=== PATIENT | male | born 1955 | race Caucasian/White ===

== ENCOUNTER → 2022-10-07 | Emergency (ER) | payer MEDICARE, BC ==
[~2022-10-07] VITALS: Ht 165.1 cm; Wt 59.0 kg
[~2022-10-07] MED LIST: TAMSULOSIN 0.4 MG CAP.SR.24H ONE; TAMSULOSIN 0.4 MG CAP.SR.24H PO ONE
--- NOTE | 2022-10-07 16:22 | NUR ---
PT UNABLE TO URINATE SINCE THIS MORNING. PT IS AMBULATORY AND ESCORTED TO BED 6
--- NOTE | 2022-10-07 16:52 | NUR ---
FC 16FR INSERTED -600ML URINE YELLOW AND CLEAR
--- NOTE | 2022-10-07 17:15 | NUR ---
UA COLLECTED AT THIS TIME AND READY FOR PERIANESTHESIA NURSE
--- NOTE | 2022-10-07 17:30 | NUR ---
FC CHANGED TO LEG BAG
[2022-10-07 17:49] VITALS: BP 128/70
[2022-10-07 17:52] LABS: BILIRUBIN,URINE NEGATIVE (NEGATIVE); COLOR,URINE YELLOW (YELLOW); LEUKOCYTE ESTERASE ,URINE NEGATIVE (NEGATIVE); NITRITE, URINE NEGATIVE (NEGATIVE); PH,URINE 5.5 (5.0-8.0); PROTEIN,URINE NEGATIVE (NEGATIVE); UGLUCOSE NEGATIVE (NEGATIVE); UROBILINOGEN,URINE 0.2 EU/dL (0.2)
== END | disposition home or self-care (01) ==
LOC: ER 16:01
DX: R33.9 Retention of urine, unspecified (principal); I10 Essential (primary) hypertension; N40.1 Benign prostatic hyperplasia with lower urinary tract symptoms; Z88.2 Allergy status to sulfonamides
CPT/HCPCS: 87086-TC

== ENCOUNTER 2022-10-10 08:55 | Emergency (ER) | payer MEDICARE, BC ==
[~2022-10-10] VITALS: Ht 162.6 cm; Wt 59.0 kg
--- NOTE | 2022-10-10 09:18 | NUR ---
Patient caem in to the er c/o valladares cath pain, inserted last saturday. On room air, breathing evenly and unlabored. Kept comfortable, will continue to monitor accordingly.
--- NOTE | 2022-10-10 09:19 | NUR ---
Hanson cath removed.
--- NOTE | 2022-10-10 10:52 | NUR ---
patient able to urinate about 300 ml of clear urine.
[2022-10-10 11:03] VITALS: BP 114/77
--- NOTE | 2022-10-10 11:03 | NUR ---
Patient discharged to home in stable condition. Written and verbal after care instructions given. Patient verbalizes understanding of instruction.
== END 2022-10-10 11:03 | disposition home or self-care (01) ==
LOC: ER 09:02
DX: Z46.6 Encounter for fitting and adjustment of urinary device (principal); N48.89 Other specified disorders of penis; I10 Essential (primary) hypertension; N40.1 Benign prostatic hyperplasia with lower urinary tract symptoms; Z88.2 Allergy status to sulfonamides